=== PATIENT | male | born 1970 | race Caucasian/White ===

== ENCOUNTER 2018-06-15 10:31 | Emergency (ER) | payer OTHER ==
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
[2018-06-15 11:20] VITALS: BP 148/90
== END 2018-06-15 11:26 | disposition home or self-care (01) ==
LOC: CED 10:31
DX: S39.012A Strain of muscle, fascia and tendon of lower back, initial encounter (principal); V43.52XA Car driver injured in collision with other type car in traffic accident, initial encounter; Y92.410 Unspecified street and highway as the place of occurrence of the external cause; Y99.8 Other external cause status